=== PATIENT | female | born 1955 | race American Indian/Alaskan Native ===

== ENCOUNTER 2017-04-28 03:07 | Emergency (ER) | payer MEDICARE, OTHER ==
[2017-04-28 04:01] LABS: Basophils % (Auto) 0.5 % (0.0-1.8); Eosinophils # (Auto) 0.2 K/mm3 (0.0-0.4); Eosinophils % (Auto) 2.7 % (0.0-4.3); Hematocrit 36.3 % (30.3-42.9); Hemoglobin 12.7 gm/dl (10.1-14.3); Lymphocytes # (Auto) 1.5 K/mm3 (1.2-5.4); Lymphocytes % (Auto) 20.9 % (13.4-35.0); Mean Corpuscular HGB Conc 35 % (30-34); Mean Corpuscular Hemoglobin 29 pg (28-32); Mean Corpuscular Volume 84 fl (79-97); Monocytes # (Auto) 0.7 K/mm3 (0.0-0.8); Monocytes % (Auto) 9.3 % (0.0-7.3); Platelet Count 173 K/mm3 (140-440); Red Blood Count 4.31 M/mm3 (3.65-5.03); Red Cell Distribution Width 15.2 % (13.2-15.2)
[2017-04-28 04:16] LABS: BUN/Creatinine Ratio 20; Blood Urea Nitrogen 16 mg/dL (7-17); Calcium 8.9 mg/dL (8.4-10.2); Hemolysis Index 9
--- NOTE | 2017-04-28 04:54 | Emergency Department Report ---
ED General Adult HPI - General Chief complaint: Chest Pain Stated complaint: PACEMAKER MADE A NOISE Time Seen by Provider: 04/28/17 04:44 Source: patient Mode of arrival: Ambulatory Limitations: No Limitations - History of Present Illness Initial comments: Patient is 61 years old female history of hypertension, diabetes and congestive heart failure and defibrillator put in in 2007. Patient stated that she was watching a movie when she had the device making a vibrating noise. She called [facility] and they asked to go to the ER. Patient denied any chest pain, shortness of breath, dizziness, palpitation or weakness. Patient stated that she's been symptoms free for a while and she did not have any recent symptoms. - Related Data Home Medications Medication Instructions Recorded Confirmed Last Taken Aspirin [Aspirin BABY CHEW TAB] 81 mg PO QDAY 05/28/15 05/28/15 Unknown Carvedilol [Coreg] 25 mg PO QHS 05/28/15 05/28/15 Unknown Clopidogrel Bisulfate [Plavix] 75 mg PO DAILY 05/28/15 05/28/15 Unknown Ezetimibe/Simvastatin [Vytorin 1 tab PO QHS 05/28/15 05/28/15 Unknown 10-20 mg] Furosemide [Lasix TAB] 40 mg PO QDAY 05/28/15 05/28/15 Unknown Isosorbide Dinitrate 30 mg PO DAILY 05/28/15 05/28/15 Unknown Lisinopril [Zestril] 5 mg PO QDAY 05/28/15 05/28/15 Unknown Oxycodone HCl/Acetaminophen 1 each PO Q6HR PRN 05/28/15 05/28/15 Unknown [Percocet 10/325 mg] Potassium Chloride 20 meq PO DAILY 05/28/15 05/28/15 Unknown Ranolazine [Ranexa] 500 mg PO BID 05/28/15 05/28/15 Unknown Allergies Allergy/AdvReac Type Severity Reaction Status Date / Time acetaminophen Allergy Nausea Verified 05/28/15 17:40 [From Darvocet-N] propoxyphene napsylate Allergy Nausea Verified 05/28/15 17:40 [From Darvocet-N] ED Review of Systems ROS: Stated complaint: PACEMAKER MADE A NOISE Other details as noted in HPI Comment: All other systems reviewed and negative Constitutional: denies: chills, diaphoresis Respiratory: denies: cough, orthopnea, shortness of breath, SOB with exertion Cardiovascular: denies: chest pain, palpitations, dyspnea on exertion Gastrointestinal: denies: abdominal pain, nausea, vomiting, diarrhea, constipation, hematemesis, hematochezia Musculoskeletal: denies: back pain, joint swelling Skin: denies: rash Neurological: denies: headache, weakness, numbness, paresthesias, confusion ED Past Medical Hx - Past Medical History Previous Medical History?: Yes Hx Hypertension: Yes Hx Heart Attack/AMI: Yes Hx Congestive Heart Failure: Yes Hx Diabetes: Yes - Surgical History Past Surgical History?: Yes Hx Coronary Stent: Yes Additional Surgical History: DEFIBILATOR - Social History Smoking Status: Current Every Day Smoker Substance Use Type: Other - Medications Home Medications: Home Medications Medication Instructions Recorded Confirmed Last Taken Type Aspirin [Aspirin BABY CHEW TAB] 81 mg PO QDAY 05/28/15 05/28/15 Unknown History Carvedilol [Coreg] 25 mg PO QHS 05/28/15 05/28/15 Unknown History Clopidogrel Bisulfate [Plavix] 75 mg PO DAILY 05/28/15 05/28/15 Unknown History Ezetimibe/Simvastatin [Vytorin 1 tab PO QHS 05/28/15 05/28/15 Unknown History 10-20 mg] Furosemide [Lasix TAB] 40 mg PO QDAY 05/28/15 05/28/15 Unknown History Isosorbide Dinitrate 30 mg PO DAILY 05/28/15 05/28/15 Unknown History Lisinopril [Zestril] 5 mg PO QDAY 05/28/15 05/28/15 Unknown History Oxycodone HCl/Acetaminophen 1 each PO Q6HR PRN 05/28/15 05/28/15 Unknown History [Percocet 10/325 mg] Potassium Chloride 20 meq PO DAILY 05/28/15 05/28/15 Unknown History Ranolazine [Ranexa] 500 mg PO BID 05/28/15 05/28/15 Unknown History ED Physical Exam - General Limitations: No Limitations General appearance: alert, in no apparent distress - Head Head exam: Present: atraumatic, normocephalic - Eye Eye exam: Present: normal appearance - ENT ENT exam: Present: normal exam, normal orophraynx, mucous membranes moist - Neck Neck exam: Present: normal inspection, full ROM. Absent: tenderness, meningismus, lymphadenopathy, thyromegaly - Respiratory Respiratory exam: Present: normal lung sounds bilaterally. Absent: respiratory distress, wheezes, rales, rhonchi, stridor, decreased breath sounds, prolonged expiratory - Cardiovascular Cardiovascular Exam: Present: regular rate, normal rhythm, normal heart sounds - GI/Abdominal GI/Abdominal exam: Present: soft, normal bowel sounds. Absent: distended, tenderness, guarding, rebound, rigid, organomegaly, mass, bruit, pulsatile mass , hernia - Extremities Exam Extremities exam: Present: normal inspection, full ROM. Absent: tenderness, normal capillary refill, pedal edema, joint swelling, calf tenderness - Back Exam Back exam: Present: normal inspection, full ROM. Absent: CVA tenderness (R), CVA tenderness (L) - Neurological Exam Neurological exam: Present: alert, oriented X3, CN II-XII intact, normal gait - Skin Skin exam: Present: warm, intact, normal color. Absent: cyanosis, diaphoretic ED Course Vital Signs 04/28/17 03:31 Temperature 98.6 F Pulse Rate 85 Respiratory 18 Rate Blood Pressure 118/73 O2 Sat by Pulse 95 Oximetry - Reevaluation(s) Reevaluation #1: 04/28/17 06:02 Patient is asymptomatic. Signed due to interrogated the defibrillator, I reviewed the report that they sent which she did not show any events. The recommendation that the generator for the defibrillator should be change and advise patient can go home and follow-up with Dr. Sanchez for that. I informed the patient about this information, she understood and she agreed with the plan. The patient will be discharged with no symptoms. ED Medical Decision Making - Lab Data Result diagrams: 04/28/17 03:41 04/28/17 03:41 Critical care attestation.: If time is entered above; I have spent that time in minutes in the direct care of this critically ill patient, excluding procedure time. ED Disposition Clinical Impression: ICD (implantable cardioverter-defibrillator) malfunction Disposition: DC-01 TO HOME OR SELFCARE Is pt being admited?: No Condition: Stable Additional Instructions: Please follow up with Dr. Sanchez in the next 2-3 days.
[2017-04-28 06:07] VITALS: BP 116/78
== END 2017-04-28 07:11 | disposition home or self-care (01) ==
LOC: ED 03:07
DX: T82.897A Other specified complication of cardiac prosthetic devices, implants and grafts, initial encounter (principal); Y84.0 Cardiac catheterization as the cause of abnormal reaction of the patient, or of later complication, without mention of misadventure at the time of the procedure; I10 Essential (primary) hypertension; I50.9 Heart failure, unspecified; I25.2 Old myocardial infarction; F17.200 Nicotine dependence, unspecified, uncomplicated
CPT/HCPCS: 36415; 80048; 84484; 85025